=== PATIENT | male | born 1970 | race Hispanic/Latino ===

== ENCOUNTER 2020-07-04 09:47 | Emergency (ER) | payer MEDICAID ==
[~2020-07-04] VITALS: Ht 172.7 cm; Wt 90.7 kg
[2020-07-04] MEDS ORDERED: LISINOPRIL10 MG PO (10:10)
== END 2020-07-04 12:55 | disposition home or self-care (01) ==
LOC: ED 09:47
DX: R47.1 Dysarthria and anarthria (principal); E11.9 Type 2 diabetes mellitus without complications; Z88.2 Allergy status to sulfonamides; Z79.899 Other long term (current) drug therapy
CPT/HCPCS: 70450; 80053; 85025; 99285-25